=== PATIENT | female | born 1980 | race Caucasian/White ===

== ENCOUNTER 2022-03-17 06:59 | Day surgery (SDC) | payer MEDICAID ==
[2022-03-17] MEDS ORDERED: Lidocaine 1% with EPINEPHrine 1:100,000 50 ML MDV ONE (07:07)
[2022-03-17] MEDS ORDERED: Sodium Tetradecyl Sulfate 1% 20 MG/2 ML SDV ONE (07:08)
[2022-03-17] MEDS ORDERED: Sodium Chloride 0.9% 0 ML ONE (07:18)
[2022-03-17] MEDS ORDERED: fentaNYL 100 MCG/2 ML SDV ONE (07:25)
[2022-03-17] MEDS ORDERED: Propofol 200 MG/20 ML SDV ONE ×2 (07:26→08:33)
[2022-03-17] MEDS ORDERED: Midazolam 1 MG/ML 2 ML SDV ONE (07:26)
[2022-03-17] MEDS ORDERED: Lactated Ringers 1,000 ML IV SCH (07:30)
[2022-03-17] MEDS ORDERED: Lidocaine 1% w/EPINEPHrine 50 ML, Sodium Bicarbonate 5 MEQ in Sodium Chloride 0.9% 950 ML INJECT ONE (08:15)
== END 2022-03-17 10:26 | disposition home or self-care (01) ==
LOC: JP.SDS 06:59
PROVIDERS: ATTEND Surgery
DX: I87.2 Venous insufficiency (chronic) (peripheral) (principal); I80.9 Phlebitis and thrombophlebitis of unspecified site
CPT/HCPCS: 81025; J1642; J2250; J2704; J3010; J3490; J7030; J7120